=== PATIENT | male | born 1965 | race Asian ===

== ENCOUNTER 2017-01-26 12:11 | Emergency (ER) | payer OTHER ==
[2017-01-26 12:16] VITALS: TEMP 98.2
--- NOTE | 2017-01-26 13:06 | EDPHY ---
H & P Time Seen by Provider: 01/26/17 12:57 HPI/ROS: CHIEF COMPLAINT: Abdominal pain HISTORY OF PRESENT ILLNESS: The patient is a 51-year-old male presenting with diffuse abdominal pain. This pain has been intermittent in nature for months. However, for the past four days the pain has occurred more often. He has tried over the counter gas relief as well as Ibuprofen, but found no relief. The pain improves sometimes with food intake. The patient has ongoing constipation for the past three years since moving here. He states he is currently having very small hard stools. His pain now is 7/10. He states it waxes and wanes. REVIEW OF SYSTEMS: A comprehensive 10 point review of systems is otherwise negative aside from elements mentioned in the history of present illness. Past Medical/Surgical History: Denies. Social History: Brother at bedside. Smoking Status: Never smoked Physical Exam: General Appearance: Alert, pleasant Eyes: Pupils equal and round, no conjunctival pallor or injection ENT, Mouth: Mucous membranes moist Neck: Normal inspection Respiratory: Lungs are clear to auscultation Cardiovascular: Regular rate and rhythm Gastrointestinal: mild epigastric tenderness Neurological: A&O, nonfocal, normal gait Skin: Warm and dry, no rash Extremities: Nontender, no pedal edema Psychiatric: Mood and affect normal Constitutional: Initial Vital Signs Temperature (C) 36.8 C 01/26/17 12:14 Heart Rate 91 01/26/17 12:14 Respiratory Rate 14 01/26/17 12:14 Blood Pressure 145/92 H 01/26/17 12:14 O2 Sat (%) 97 01/26/17 12:14 O2 Delivery Mode Room Air Allergies/Adverse Reactions: No Known Allergies Allergy (Unverified 04/10/16 20:04) Home Medications: Medication Instructions Recorded Cephalexin [Keflex] 500 mg PO TID #21 cap 04/10/16 oxyCODONE/APAP 5/325 [Percocet 1 - 2 tab PO Q6H PRN #20 tab 04/10/16 5/325 (*)] Pantoprazole Sodium [Protonix 40mg 40 mg PO DAILY #20 tab 01/26/17 (*)] Medical Decision Making ED Course/Re-evaluation: The patient presents with diffuse abdominal pain that has been intermittent in nature for quite sometime but has now remained constant for the past 4 days. The patient states he has trouble with constipation. He is only able to have small, hard stools. Abdominal exam is benign. Plan for GI cocktail and labs. Feels better after GI cocktail. Lab work is unremarkable, including white blood cell count, LFTs and lipase. Given that he is feeling better, I will discharge patient with Protonix. I recommend increase oral fluids and that he start Dulcolax for constipation. Avoid NSAIDs. Dietary instructions given. Mag citrate given. Differential Diagnosis: Differential diagnosis includes though it is not limited to appendicitis, cholecystitis, diverticulitis, pyelonephritis, bowel perforation, small bowel obstruction. - Data Points Laboratory Results: Laboratory Results 01/26/17 12:50 01/26/17 12:50 01/26/17 01/26/17 12:50 12:50 WBC 13.78 10^3/uL H 10^3/uL (3.80-9.50) RBC 5.13 10^6/uL 10^6/uL (4.40-6.38) Hgb 15.8 g/dL g/dL (13.7-17.5) Hct 45.3 % % (40.0-51.0) MCV 88.3 fL fL (81.5-99.8) MCH 30.8 pg pg (27.9-34.1) MCHC 34.9 g/dL g/dL (32.4-36.7) RDW 13.8 % % (11.5-15.2) Plt Count 212 10^3/uL 10^3/uL (150-400) MPV 11.1 fL fL (8.7-11.7) Neut % (Auto) 82.1 % H % (39.3-74.2) Lymph % (Auto) 7.8 % L % (15.0-45.0) Elbert % (Auto) 9.1 % % (4.5-13.0) Eos % (Auto) 0.1 % L % (0.6-7.6) Baso % (Auto) 0.2 % L % (0.3-1.7) Nucleat RBC Rel Count 0.0 % % (0.0-0.2) Absolute Neuts (auto) 11.32 10^3/uL H 10^3/uL (1.70-6.50) Absolute Lymphs (auto) 1.07 10^3/uL 10^3/uL (1.00-3.00) Absolute Monos (auto) 1.26 10^3/uL H 10^3/uL (0.30-0.80) Absolute Eos (auto) 0.01 10^3/uL L 10^3/uL (0.03-0.40) Absolute Basos (auto) 0.03 10^3/uL 10^3/uL (0.02-0.10) Absolute Nucleated RBC 0.00 10^3/uL 10^3/uL (0-0.01) Immature Gran % 0.7 % % (0.0-1.1) Immature Gran # 0.09 10^3/uL 10^3/uL (0.00-0.10) Sodium 137 mEq/L mEq/L (134-144) Potassium 4.2 mEq/L mEq/L (3.5-5.2) Chloride 103 mEq/L mEq/L (97-110) Carbon Dioxide 24 mEq/l mEq/l (22-31) Anion Gap 10 mEq/L mEq/L (8-16) BUN 10 mg/dL mg/dL (7-23) Creatinine 1.0 mg/dL mg/dL (0.7-1.3) Estimated GFR > 60 Glucose 167 mg/dL H mg/dL (70-100) Calcium 8.8 mg/dL mg/dL (8.5-10.4) Total Bilirubin 1.9 mg/dL H mg/dL (0.1-1.4) Conjugated Bilirubin 0.5 mg/dL mg/dL (0.0-0.5) Unconjugated Bilirubin 1.4 mg/dL H mg/dL (0.0-1.1) AST 25 IU/L IU/L (17-59) ALT 43 IU/L IU/L (21-72) Alkaline Phosphatase 98 IU/L IU/L (38-126) Total Protein 7.8 g/dL g/dL (6.3-8.2) Albumin 4.1 g/dL g/dL (3.5-5.0) Lipase 115.0 IU/L IU/L (23-300) Medications Given: Discontinued Medications Al Hydroxide/Mg Hydroxide (Maalox Susp) 30 ml PO ONCE ONE Stop: 01/26/17 13:10 Last Admin: 01/26/17 13:20 Dose: 30 ml Hyoscyamine Sulfate (Levsin, Hyomax-Sl) 0.25 mg PO ONCE ONE Stop: 01/26/17 13:10 Last Admin: 01/26/17 13:20 Dose: 0.25 mg Lidocaine (Lidocaine 2% Viscous) 15 ml PO ONCE ONE Stop: 01/26/17 13:10 Last Admin: 01/26/17 13:20 Dose: 15 ml Magnesium Citrate (Magnesium Citrate) 300 ml PO ONCE ONE Stop: 01/26/17 13:34 Last Admin: 01/26/17 13:45 Dose: 1 btl Pantoprazole Sodium (Protonix) 40 mg PO EDNOW ONE Stop: 01/26/17 13:33 Last Admin: 01/26/17 13:45 Dose: 40 mg Departure - Departure Disposition: Home, Routine, Self-Care Clinical Impression: Gastritis Qualifiers: Gastritis type: unspecified gastritis Chronicity: acute Gastritis bleeding: without bleeding Qualified Code(s): K29.00 - Acute gastritis without bleeding Constipation Qualifiers: Constipation type: unspecified constipation type Qualified Code(s): K59.00 - Constipation, unspecified Condition: Good Instructions: Gastritis (ED), Constipation (ED), Diet for Stomach Ulcers and Gastritis (ED) Additional Instructions: You have been referred to a primary care physician below, please followup with them if you continue to have discomfort. Take Protonix as directed. Follow diet instructions provided. Try over the counter Dulcolax for constipation. Referrals: Zahra Valderrama MD [Medical Doctor] - As per Instructions (Primary care physician) Prescriptions: Pantoprazole Sodium [Protonix 40mg (*)] 40 mg PO DAILY #20 tab Report Scribed for: Syeda Hyde Report Scribed by: Yael Patel Date of Report: 01/26/17 Time of Report: 13:06 Physician Review and Approval Statement: 01/26/17 13:06 Portions of this note were transcribed by a medical officer. I personally performed the history, physical exam, and medical decision-making; and confirmed the accuracy of the information in the transcribed note.
[2017-01-26] MEDS ORDERED: HYOSCYAMINE SULFATE 0.125 MG TAB PO ONE (13:09)
[2017-01-26] MEDS ORDERED: LIDOCAINE 2% VISCOUS 15 ML UDCUP PO ONE (13:09)
[2017-01-26] MEDS ORDERED: MAG HYDROX/AL HYDROX/SIMETH 30 ML UDCUP PO ONE (13:09)
[2017-01-26 13:18] LABS: % IMMATURE GRANULYOCYTES 0.7 % (0.0-1.1); ABSOLUTE IMMATURE GRANULOCYTES 0.09 10^3/uL (0.00-0.10); ADD DIFF? NO; ADD MORPH? NO; ADD SCAN? NO; ATYPICAL LYMPHOCYTE FLAG 10 (0-99); FRAGMENT RBC FLAG 0 (0-99); HEMATOCRIT 45.3 % (40.0-51.0); HEMOGLOBIN 15.8 g/dL (13.7-17.5); LEFT SHIFT FLG 20 (0-99); LIPEMIA HEMOLYSIS FLAG 90 (0-99); MEAN CELL HEMOGLOBIN 30.8 pg (27.9-34.1); MEAN CELL HEMOGLOBIN CONCENTR. 34.9 g/dL (32.4-36.7); MEAN CELL VOLUME 88.3 fL (81.5-99.8); MEAN PLATELET VOLUME 11.1 fL (8.7-11.7); PLATELET CLUMPS FLAG 0 (0-99); PLATELET COUNT 212 10^3/uL (150-400); RED BLOOD CELL COUNT 5.13 10^6/uL (4.40-6.38); RED CELL DISTRIBUTION WIDTH 13.8 % (11.5-15.2)
[2017-01-26 13:23] LABS: ALANINE AMINOTRANSFERASE 43 IU/L (21-72); ALBUMIN 4.1 g/dL (3.5-5.0); ALKALINE PHOSPHATASE 98 IU/L (38-126); ANION GAP 10 mEq/L (8-16); ASPARTATE AMINOTRANSFERASE 25 IU/L (17-59); BILIRUBIN,TOTAL 1.9 mg/dL (0.1-1.4); BILIRUBIN-CONJUGATED 0.5 mg/dL (0.0-0.5); BILIRUBIN-UNCONJUGATED 1.4 mg/dL (0.0-1.1); CALCIUM 8.8 mg/dL (8.5-10.4); CARBON DIOXIDE 24 mEq/l (22-31); CHLORIDE 103 mEq/L (97-110); GLOMERULAR FILTRATION RATE > 60; GLUCOSE 167 mg/dL (70-100); POTASSIUM 4.2 mEq/L (3.5-5.2); SODIUM 137 mEq/L (134-144); TOTAL PROTEIN 7.8 g/dL (6.3-8.2)
[2017-01-26] MEDS ORDERED: PANTOPRAZOLE SODIUM 40 MG TAB PO ONE (13:32)
[2017-01-26] MEDS ORDERED: MAGNESIUM CITRATE 300 ML BOTTLE PO ONE (13:33)
[2017-01-26 13:46] VITALS: BP 138/85; PULSE 78; RESP 18; O2SAT 94
== END 2017-01-26 13:46 | disposition home or self-care (01) ==
DX: K29.00 Acute gastritis without bleeding (principal); K59.00 Constipation, unspecified